=== PATIENT | female | born 1975 | race Caucasian/White ===

== ENCOUNTER 2021-07-24 01:36 | Emergency (ER) | payer BC ==
[~2021-07-24] VITALS: Ht 160 cm; Wt 69.1 kg
[2021-07-24 02:10] VITALS: BP 109/65
[2021-07-24] MEDS ORDERED: ONDANSETRON ODT 4 MG TAB.RAPDIS ONE (02:19)
[2021-07-24] MEDS ORDERED: diphenhydrAMINE HCL 25 MG CAPSULE PO ONE ×2 (02:19→02:30)
[2021-07-24] MEDS ORDERED: ONDANSETRON ODT 4 MG TAB.RAPDIS PO ONE (02:30)
--- NOTE | 2021-07-24 02:59 | PHYS DOC ---
Past History Past Surgical History: , Hysterectomy, Other Additional Past Surgical Histo: KNEE SX, D&C Alcohol Use: Occasionally Adult General Chief Complaint Chief Complaint: NAUSEA/VOMITING/DIARRHEA HPI HPI Patient is a 45-year-old female who presents to the emergency department with a chief complaint of nausea, vomiting and diarrhea that started about 4 hours ago. Denies any recent travels, traumas, illnesses, fevers, chest pain, shortness of breath, abdominal pain. Denies any dysuria, hematuria, blood in the stool. States that she had some soft to watery stool, nonbloody x3 episodes. Denies any vaginal bleeding, discharge, pain or history of STIs. Denies any alcohol use. Review of Systems Review of Systems Review of systems otherwise unremarkable except noted in HPI Current Medications Current Medications Current Medications Medications (Trade) Dose Ordered Sig/Kymberly Start Time Stop Time Status Last Admin Dose Admin Diphenhydramine HCl (Benadryl) 25 mg STK-MED ONCE 07/24/21 02:19 07/24/21 02:20 DC Ondansetron HCl (Zofran Odt) 4 mg STK-MED ONCE 07/24/21 02:19 07/24/21 02:20 DC Allergies Allergies Allergies Coded Allergies Type Severity Reaction Last Updated Verified Sulfa (Sulfonamide Antibiotics) Allergy Unknown 07/24/21 Yes ciprofloxacin Allergy Unknown 07/24/21 Yes Physical Exam Physical Exam Constitutional: Well developed, well nourished, no acute distress, non-toxic appearance. [] HENT: Normocephalic, atraumatic, bilateral external ears normal, oropharynx moist, no oral exudates, nose normal. [] Eyes: conjunctiva normal, no discharge. [] Neck: Normal range of motion, no tenderness, supple, no stridor. [] Cardiovascular:Heart rate regular rhythm, no murmur [] Lungs & Thorax: Bilateral breath sounds clear to auscultation [] Abdomen: soft, no tenderness, no masses, no pulsatile masses. [] Skin: Warm, dry, no erythema, no rash. [] Back: No tenderness, no CVA tenderness. [] Extremities: No tenderness, no cyanosis, no clubbing, ROM intact, no edema. [] Neurologic: Alert and oriented X 3, normal motor function, normal sensory function, no focal deficits noted. [] Psychologic: Affect normal, judgement normal, mood normal. [] Current Patient Data Vital Signs Vital Signs Date Time Temp Pulse Resp B/P (MAP) Pulse Ox O2 Delivery O2 Flow Rate FiO2 07/24/21 02:10 98.9 117 18 109/65 (80) 98 Room Air Lab Results Laboratory Tests Test 07/24/21 02:02 POC Urine HCG, Qualitative hcg negative (Negative) EKG EKG [] Radiology/Procedures Radiology/Procedures [] Heart Score C/O Chest Pain: No Risk Factors: Risk Factors: DM, Current or recent (<one month) smoker, HTN, HLP, family history of CAD, obesity. Risk Scores: Risk Factors: DM, Current or recent (<one month) smoker, HTN, HLP, family history of CAD, obesity. Course & Med Decision Making Course & Med Decision Making Patient is a 45-year-old female presents with nausea, vomiting and diarrhea Vital signs notable for tachycardia. Physical exam noted above. Given antiemetics On reassessment patient symptoms resolved and able to take p.o. without issue. Discussed symptomatic treatment at home. Advised on diet over the next couple of days. Given antiemetics for home. Advised to follow-up with primary care on Monday. Given COVID education and quarantine despite negative rapid as has COVID as well. Patient grateful, verbalized understanding and agreed with plan of discharge. Dragon Disclaimer Dragon Disclaimer This electronic medical record was generated, in whole or in part, using a voice recognition dictation system. Departure Departure: Impression: Primary Impression: Nausea & vomiting Additional Impressions: Diarrhea Person under investigation for COVID-19 Disposition: HOME / SELF CARE / HOMELESS Condition: GOOD Referrals: PCPBRIAN (PCP) ALVIN GILL Patient Instructions: Nausea and Vomiting, Viral Syndrome Additional Instructions: Thank you for coming into the emergency department tonight and allowing us to take care of you. Please read the attached information carefully to go over things we discussed. Please continue a Tylenol, ibuprofen and Benadryl regimen. Please take your nausea medicine as we discussed. Please be sure to drink plenty of fluids and adjust your diet over the next few days as we discussed. Please call your primary care physician on Monday to update on your ED visit. Please read all the COVID education and quarantine instructions and follow-up place. You have been tested for or diagnosed with COVID-19. It is an infection caused by a new type of coronavirus. COVID-19 will cause cold-like or mild flu symptoms in most. It can cause more severe symptoms like problems breathing in some. There is no treatment for COVID-19. The body will clear the infection over time. Self-care will help to ease discomfort. Steps to Take: Self-Care Rest as needed. Healthy habits may help you feel better. Steps include: Choose healthy foods including fruits and vegetables. Drink water throughout the day. Get plenty of sleep each night. If you smoke, try to quit. It may ease breathing. Avoid alcohol. Keep Others Healthy The virus can spread to others. Droplets are released every time you sneeze or cough. The droplets can get into the mouth, nose, or eyes of people near you and lead to infection. To lower the chances of spreading COVID-19 to others: Stay at home until your doctor has said it is safe to leave. If you tested positive this will mean staying isolated until both of the following are true: At least 7 days have passed since the start of illness. You are free of fever for at least 72 hours without the use of medicine. During this time: - Avoid public areas, events, or transportation. Do not return to work or school until your doctor has said it is safe to do so. - Call ahead if you need to go to a medical center. Let them know you may have COVID-19. It will help them guide you where to go. They may also ask you to wear a facemask when you come to the office. - If you call for emergency medical services, let them know you may have COVID- 19. While at home: - Try to avoid close contact with others. Stay about 6 feet away. - If possible, spend most of your time in a separate room from others. - Use a face mask if you will be in close contact with others such as sharing a room or vehicle. - Have someone wipe down common surfaces in the home. Use household gymnastic teacher every day on areas like doorknobs, counters, or sinks. - Cough or sneeze into a tissue. Throw the tissue away right after use. If a tissue is not available, cough or sneeze into your elbow. - Wash your hands often. Wash them after sneezing or coughing. Use soap and water and wash for at least 20 seconds. Alcohol based hand tuckpointer cleaner caulker can be used if soap and water is not available. - Do not prepare food for others. Avoid sharing personal items like forks, spoons, or toothbrushes. - Avoid close contact with pets while you are sick. There is no evidence of the virus passing to pets. This is a safety step until more is known about this virus. Isolation can be frustrating. Social interaction can help. Keep in touch with friends and family through phone and tech options. You can still interact with others in your home, just keep a safe distance of about 6 feet. Follow-up: Your doctors office will check in with you to see if there are any changes in your health. You may be asked to keep track of symptoms to share with them. They will also let you know when you are clear to be in public again. Problems to Look Out For: Contact your doctor if your recovery is not going as you expect. Get emergency care if you have problems such as: - Trouble breathing - Nonstop chest pain or pressure - Changes in awareness, confusion, or problems waking - Lips or face have bluish color - Worsening of symptoms If you think you have an emergency, call for emergency medical services right away. [facility] Health Problem Qualifiers AMAN HOPE MD Jul 24, 2021 02:59
[2021-07-24] MEDS ORDERED: ONDANSETRON 4MG ODT 4TABLET STARTPACK. PO ONE (04:00)
== END 2021-07-24 03:49 | disposition home or self-care (01) ==
LOC: ER 01:36
DX: R11.2 Nausea with vomiting, unspecified (principal); R19.7 Diarrhea, unspecified; Z20.822 Contact with and (suspected) exposure to COVID-19; Z88.2 Allergy status to sulfonamides; Z88.1 Allergy status to other antibiotic agents
CPT/HCPCS: 81025; 87426; 99284; C9803; Q0162; Q0163; U0003